=== PATIENT | female | born 1985 ===

== ENCOUNTER 2017-04-12 20:16 | Emergency (ER) | payer MEDICAID ==
[2017-04-12 20:16] VITALS: BMI 25.1
[2017-04-12 20:37] VITALS: TEMP 98.2
[2017-04-12] MEDS ORDERED: Nalbuphine 20 mg/ml Inj (1 ml) IM STA (21:01)
[2017-04-12] MEDS ORDERED: hydrOXYzine HCl 25 mg/ml Inj IM STA (21:01)
--- NOTE | 2017-04-12 21:04 | C.PDOC ---
History Of Present Illness 31 y/o female, with past history of migraines, presents to emergency department with complaint of headache since last night. Patient reports associated nausea. Denies visual changes, vomiting, extremity weakness or numbness, or other associated symptoms. Chief Complaint (Nursing): Headache History Per: Patient History/Exam Limitations: no limitations Onset/Duration Of Symptoms: Days Current Symptoms Are (Timing): Still Present Preceeding Symptoms: None Associated Symptoms: Nausea. denies: Photophobia, Blurred Vision, Vomiting, Extremity Weakness Recent travel outside of the [place]: No Past Medical History Reviewed: Historical Data, Nursing Documentation, Vital Signs Vital Signs: Last Vital Signs Temp 98.2 F 04/12/17 20:32 Pulse 91 H 04/12/17 20:32 Resp 18 04/12/17 20:32 BP 95/61 L 04/12/17 20:32 Pulse Ox 97 04/12/17 22:55 - Medical History PMH: Back Problems (chronic lower back pain, see HPI ), Migraine Family History: States: Unknown Family Hx - Social History Hx Tobacco Use: Yes Hx Alcohol Use: No Hx Substance Use: No - Immunization History Hx Tetanus Toxoid Vaccination: No Hx Influenza Vaccination: No Hx Pneumococcal Vaccination: No Review Of Systems Except As Marked, All Systems Reviewed And Found Negative. Constitutional: Negative for: Fever, Chills Respiratory: Negative for: Cough, Shortness of Breath, Wheezing Gastrointestinal: Positive for: Nausea. Negative for: Vomiting Musculoskeletal: Negative for: Neck Pain Skin: Negative for: Rash Neurological: Positive for: Headache. Negative for: Weakness, Numbness, Dizziness Physical Exam - Physical Exam Appears: Non-toxic, No Acute Distress, Other (alert, conscious) Skin: Normal Color, Warm, Dry Head: Atraumatic, Normacephalic Eye(s): bilateral: Normal Inspection, PERRL, EOMI Oral Mucosa: Moist Neck: No Paracervical Tenderness, Supple Chest: Symmetrical Cardiovascular: Rhythm Regular, No Murmur Respiratory: Normal Breath Sounds, No Rales, No Rhonchi, No Wheezing Gastrointestinal/Abdominal: Soft, No Tenderness, No Guarding, No Rebound Back: Normal Inspection Extremity: Normal ROM, Capillary Refill (< 2 sec. ) Neurological/Psych: Oriented x3, Normal Speech, Normal Cognition, Other (no focal deficits) ED Course And Treatment O2 Sat by Pulse Oximetry: 97 (RA) Pulse Ox Interpretation: Normal Progress Note: Treated with Atarax, Imitrex, and Nubain. Disposition Counseled Patient/Family Regarding: Diagnosis - Disposition Referrals: [facility] [Outside] Disposition: HOME/ ROUTINE Disposition Time: 22:53 Condition: STABLE Prescriptions: Tramadol HCl/Acetaminophen [Ultracet Tablet] 1 each PO Q4 #10 tablet Instructions: Migraine Headache (ED) - POA Present On Arrival: None - Clinical Impression Clinical Impression: Migraine, Headache - Scribe Statement The provider has reviewed the documentation as recorded by the Denisseibanna Giordano All medical record entries made by the Denisseibanna were at my direction and personally dictated by me. I have reviewed the chart and agree that the record accurately reflects my personal performance of the history, physical exam, medical decision making, and the department course for this patient. I have also personally directed, reviewed, and agree with the discharge instructions and disposition.
[2017-04-12 23:22] VITALS: BP 110/60; PULSE 70; RESP 14; O2SAT 99
== END 2017-04-12 23:22 | disposition home or self-care (01) ==
LOC: C.ER 20:16
DX: G43.909 Migraine, unspecified, not intractable, without status migrainosus (principal)
CPT/HCPCS: 96372; 99284; J3030